=== PATIENT | female | born 1945 ===

== ENCOUNTER 2016-09-02 13:55 | Emergency (ER) | payer OTHER ==
[2016-09-02 14:08] VITALS: TEMP 97.4
[2016-09-02 14:42] LABS: BASO # 0.1 K/uL (0.0-0.2); BASO % 1.5 % (0.0-2.0); EOS # 0.2 K/uL (0.0-0.7); EOS % 2.4 % (0.0-4.0); HEMATOCRIT 41.1 % (34.0-47.0); LYMPH # 2.9 K/uL (1.0-4.3); LYMPH % 35.3 % (20.0-40.0); MEAN CELL VOLUME 88.6 fL (81.0-99.0); MEAN CORPUSCULAR HEMOGLOBIN 29.6 pg (27.0-31.0); MEAN CORPUSCULAR HGB CONC 33.4 g/dL (33.0-37.0); MEAN PLATELET VOLUME 8.6 fL (7.2-11.7); MONO # 0.5 K/uL (0.0-0.8); MONO % 5.8 % (0.0-10.0); NRBC % 0.1 % (0.0-2.0); RED CELL DISTRIBUTION WIDTH 13.4 % (11.5-14.5); WHITE BLOOD COUNT 8.2 K/uL (4.8-10.8)
[2016-09-02 14:50] LABS: CHLORIDE 100 mmol/L (98-107); INR 0.9; SODIUM 140 mmol/L (132-148)
[2016-09-02 14:51] LABS: PARTIAL THROMBOPLASTIN TIME 38 SECONDS (21-34)
[2016-09-02 14:52] LABS: AST/SGOT 38 U/L (14-36); BILIRUBIN,TOTAL 0.3 mg/dL (0.2-1.3); GFR AFRICAN-AMERICAN > 60
[2016-09-02 14:53] LABS: ALB/GLOB RATIO 1.4 (1.0-2.1); ALKALINE PHOSPHATASE 128 U/L (38-126); ALT/SGPT 60 U/L (9-52); BLOOD UREA NITROGEN 13 mg/dL (7-17); CALCIUM 9.1 mg/dl (8.6-10.4); CARBON DIOXIDE 26 mmol/L (22-30); GLUCOSE,RANDOM 117 mg/dL (65-105); TOTAL PROTEIN 7.6 g/dL (6.3-8.3)
[2016-09-02] MEDS ORDERED: Albuterol-Ipratrop 3 mg / 0.5 (3 ml) UD IH STA (15:07)
--- NOTE | 2016-09-02 15:10 | RAD ---
PROCEDURE: CHEST RADIOGRAPH, 1 VIEW HISTORY: SOB COMPARISON: None available. FINDINGS: LUNGS: Mild venous congestion. Right hilar prominence and or consolidation. Upper lobe granulomatous changes. PLEURA: As above. CARDIOVASCULAR: Cardiomegaly. OSSEOUS STRUCTURES: No significant abnormalities. VISUALIZED UPPER ABDOMEN: Normal. OTHER FINDINGS: None. IMPRESSION: Mild venous congestion. Right hilar prominence and or consolidation. Upper lobe granulomatous changes.
[2016-09-02] MEDS ORDERED: Albuterol-Ipratrop 3 mg / 0.5 (3 ml) UD ONE (15:13)
[2016-09-02] MEDS ORDERED: Iodixanol 320 MG/ML 100 ML BOTTLE IV ONE (15:30)
--- NOTE | 2016-09-02 16:48 | CT ---
PROCEDURE: CT Chest with contrast (Pulmonary Angiogram) HISTORY: Shortness of breath evaluate for pulmonary emboli. COMPARISON: None available. TECHNIQUE: Axial computed tomography images were obtained of the chest in the pulmonary arterial phase of enhancement. Coronal and sagittal reformatted images were created and reviewed. Sagittal and coronal reformatted MIPS images were obtained. Radiation dose: Total exam DLP = 472 mGy-cm. This CT exam was performed using one or more of the following dose reduction techniques: Automated exposure control, adjustment of the mA and/or kV according to patient size, and/or use of iterative reconstruction technique. FINDINGS: PULMONARY ARTERIES: Unremarkable. No pulmonary embolism. Mild streak artifact noted at the anterior aspect of the right upper lung. AORTA: No acute findings. No thoracic aortic aneurysm. Calcification and plaque within the aorta. LUNGS: Biapical pleural thickening. Right lun millimeter pulmonary nodule at the right lung apex on series 4, image 29. 3 millimeter calcified granuloma in the right upper lobe posteriorly. Left lung call 1 millimeter subpleural nodule along the lateral aspect of the left upper lobe. No pleural or pericardial effusion. PLEURAL SPACES: Unremarkable. No effusion or pneuomothorax. HEART: Unremarkable. No cardiomegaly. No significant pericardial effusion. LYMPH NODES: 6 millimeter prevascular lymph node. BONES, CHEST WALL: Degenerative changes in the spine. OTHER FINDINGS: Prominent liver with diffuse fatty infiltration. Peripheral 4 and 3 millimeter calcifications within the right hepatic lobe. At the periphery of the right hepatic lobe on series 3, image 97, there are some partially calcified lobulated lesions of uncertain clinical etiology. These measure in total up to 3.8 x 1.0 x 1.0 centimeters. Correlation with multiphasic CT or MR may be helpful if clinically indicated. More inferomedially on the coronal sequences an additional partially calcified lesion at the periphery of the right hepatic lobe measures up to 7 millimeters. Prior cholecystectomy. Spleen is preserved. Adrenal glands are preserved. Pancreas is preserved. Small hiatal hernia. IMPRESSION: No evidence of acute pulmonary embolism. Prominent liver with diffuse fatty infiltration. Peripheral 4 and 3 millimeter calcifications within the right hepatic lobe. At the periphery of the right hepatic lobe on series 3, image 97, there are some partially calcified lobulated lesions of uncertain clinical etiology. These measure in total up to 3.8 x 1.0 x 1.0 centimeters. Correlation with multiphasic CT or MR may be helpful if clinically indicated. More inferomedially on the coronal sequences an additional partially calcified lesion at the periphery of the right hepatic lobe measures up to 7 millimeters.
[2016-09-02 17:04] VITALS: BP 154/70; PULSE 79; RESP 17
--- NOTE | 2016-09-02 17:05 | C.PDOC ---
Time Seen by Provider: 09/02/16 14:14 Chief Complaint (Nursing): Shortness Of Breath History Per: Patient, Family Onset/Duration Of Symptoms: Days (about 1 month), Waxing/Waning Current Symptoms Are (Timing): Still Present Exacerbating Factor(s): Exertion (?) Severity: Moderate Additional History Per: Prior Records Past Medical History Reviewed: Historical Data, Nursing Documentation, Vital Signs Vital Signs: Last Vital Signs Temp 97.4 F L 09/02/16 14:04 Pulse 96 H 09/02/16 14:47 Resp 15 09/02/16 14:47 BP 163/81 H 09/02/16 14:47 Pulse Ox 94 L 09/02/16 14:47 - Medical History PMH: HTN Family History: States: Unknown Family Hx - Social History Hx Tobacco Use: No Hx Alcohol Use: No Hx Substance Use: No - Immunization History Hx Tetanus Toxoid Vaccination: Yes Hx Influenza Vaccination: Yes Hx Pneumococcal Vaccination: No Review Of Systems Except As Marked, All Systems Reviewed And Found Negative. Constitutional: Negative for: Fever, Weakness Cardiovascular: Negative for: Chest Pain Respiratory: Positive for: Shortness of Breath. Negative for: Hemoptysis Gastrointestinal: Negative for: Nausea, Vomiting, Abdominal Pain Musculoskeletal: Negative for: Neck Pain, Back Pain, Leg Pain Skin: Negative for: Rash Neurological: Negative for: Weakness, Numbness, Seizures, Altered Mental Status Physical Exam - Physical Exam Appears: Non-toxic, No Acute Distress Skin: Normal Color, Warm, Dry, No Rash Head: Atraumatic, Normacephalic Eye(s): bilateral: Normal Inspection, PERRL, EOMI Neck: Normal ROM, Supple Chest: Symmetrical, No Deformity Cardiovascular: Rhythm Regular Respiratory: Normal Breath Sounds, No Accessory Muscle Use Gastrointestinal/Abdominal: Soft, No Tenderness Back: No CVA Tenderness Extremity: Normal ROM, No Calf Tenderness Neurological/Psych: Oriented x3, Normal Motor, Normal Sensation ED Course And Treatment - Laboratory Results Result Diagrams: 09/02/16 14:37 09/02/16 14:37 Lab Interpretation: No Acute Changes ECG: Interpreted By Me, Viewed By Me ECG Rhythm: Sinus Rhythm, Nonspecific Changes ECG Interpretation: No Acute Changes Rate From EC O2 Sat by Pulse Oximetry: 97 (on RA) Pulse Ox Interpretation: Normal - CT Scan/US CTA of chest Other Rad Studies (CT/US): Read By Radiologist, Radiology Report Reviewed CT/US Interpretation: IMPRESSION: No evidence of acute pulmonary embolism. Prominent liver with diffuse fatty infiltration. Peripheral 4 and 3 millimeter calcifications within the right hepatic lobe. At the periphery of the right hepatic lobe on series 3, image 97, there are some partially calcified lobulated lesions of uncertain clinical etiology. These measure in total up to 3.8 x 1.0 x 1.0 centimeters. Correlation with multiphasic CT or MR may be helpful if clinically indicated. More inferomedially on the coronal sequences an additional partially calcified lesion at the periphery of the right hepatic lobe measures up to 7 millimeters. Disposition Counseled Patient/Family Regarding: Studies Performed, Diagnosis, Need For Followup - Disposition Referrals: [facility] [Outside] Disposition: HOME/ ROUTINE Disposition Time: 17:07 Condition: STABLE Additional Instructions: Lose weight. Follow up with your doctor in the clinic within 1-2 weeks for further evaluation and treatment. Return to the ER if you develop chest pain, cough, fever, worsening of symptoms or if you have any other concerns. Instructions: Dyspnea (ED), Pulmonary Nodules (ED), Non-Alcoholic Fatty Liver Disease (ED) Print Language: NAURUAN - Clinical Impression Clinical Impression: Dyspnea, Pulmonary nodules, Fatty liver
[2016-09-02 17:08] VITALS: O2SAT 97
--- NOTE | 2016-09-04 11:41 | CARD ---
APPROVED REPORT EKG Measurement Heart [id number] <Conclusion> Normal sinus rhythm Normal ECG
== END 2016-09-02 17:19 | disposition home or self-care (01) ==
LOC: C.ER 13:55
DX: R06.00 Dyspnea, unspecified (principal); R91.1 Solitary pulmonary nodule; K76.0 Fatty (change of) liver, not elsewhere classified
CPT/HCPCS: 71010; 71275; 80053; 83880; 84484; 85025; 85378; 85610; 85730; 93005; 99285; Q9967

== ENCOUNTER 2018-09-14 16:19 | Emergency (ER) | payer OTHER ==
[2018-09-14 16:19] VITALS: BMI 36.1
[2018-09-14 16:28] VITALS: RESP 18
--- NOTE | 2018-09-14 16:40 | C.PDOC ---
History Of Present Illness 73 year old female presents to the emergency department with complaints of a left-sided parietal headache. Patient qualifies the headache as intermittent and dull. She denies change in vision or vomiting. Patient states that when her headache comes, it makes her legs feel weak. Time Seen by Provider: 09/14/18 16:27 Chief Complaint (Nursing): Headache History Per: Patient History/Exam Limitations: no limitations Onset/Duration Of Symptoms: Intermittent Episodes Current Symptoms Are (Timing): Still Present Quality: Dull, Aching Preceeding Symptoms: denies: Visual Disturbances Associated Symptoms: Extremity Weakness. denies: Photophobia, Blurred Vision, Vomiting Past Medical History Reviewed: Historical Data, Nursing Documentation, Vital Signs Vital Signs: Last Vital Signs Temp 98.2 F 09/14/18 16:22 Pulse 90 09/14/18 16:22 Resp 18 09/14/18 16:22 BP 167/88 H 09/14/18 16:22 Pulse Ox 97 09/14/18 16:22 - Medical History PMH: HTN Denies: Chronic Kidney Disease Surgical History: No Surg Hx Family History: States: No Known Family Hx - Social History Hx Tobacco Use: No Hx Alcohol Use: No Hx Substance Use: No - Immunization History Hx Tetanus Toxoid Vaccination: Yes Hx Influenza Vaccination: Yes Hx Pneumococcal Vaccination: No Review Of Systems Except As Marked, All Systems Reviewed And Found Negative. Eyes: Negative for: Vision Change Gastrointestinal: Negative for: Vomiting Neurological: Positive for: Weakness, Headache Physical Exam - Physical Exam Appears: Non-toxic, No Acute Distress Skin: Normal Color, Warm, Dry Head: Atraumatic, Normacephalic Eye(s): bilateral: Normal Inspection, PERRL, EOMI Nose: Normal Oral Mucosa: Moist Neck: Normal, Supple Chest: Symmetrical, No Tenderness Cardiovascular: Rhythm Regular, No Murmur Respiratory: Normal Breath Sounds, No Rales, No Rhonchi, No Wheezing Gastrointestinal/Abdominal: Soft, No Tenderness, No Guarding, No Rebound Extremity: Normal ROM Neurological/Psych: Oriented x3, Normal Speech, Normal Cognition ED Course And Treatment - Laboratory Results Result Diagrams: 09/14/18 17:10 09/14/18 17:10 O2 Sat by Pulse Oximetry: 97 (RA) Pulse Ox Interpretation: Normal Medical Decision Making Medical Decision Making: Plan: CT Head CMP CBC Reglan 10mg IVP Toradol 15mg IVP Urine Culture Urinalysis After treatment patient reports her headache has resolved, patient is clear for d/c. Disposition Counseled Patient/Family Regarding: Studies Performed, Diagnosis, Need For Followup, Rx Given - Disposition Referrals: [facility] [Outside] Disposition Time: 18:15 Condition: STABLE Prescriptions: Acetaminophen/Butalbital/Caf [Fioricet] 1 tab PO TID PRN #10 tab PRN Reason: Headache Instructions: Headache, Adult (DC) Forms: [employer] ([employer]wana) Print Language: YI - POA Present On Arrival: None - Clinical Impression Clinical Impression: Headache - Scribe Statement The provider has reviewed the documentation as recorded by the Scribe (Clive Adan) Provider Attestation: All medical record entries made by the Scribe were at my direction and personally dictated by me. I have reviewed the chart and agree that the record accurately reflects my personal performance of the history, physical exam, medical decision making, and the department course for this patient. I have also personally directed, reviewed, and agree with the discharge instructions and disposition.
[2018-09-14 17:13] LABS: BASO % 0.6 % (0.0-2.0); EOS # 0.2 K/uL (0.0-0.7); EOS % 2.5 % (0.0-4.0); HEMOGLOBIN 14.2 g/dL (11.0-16.0); LYMPH # 2.3 K/uL (1.0-4.3); LYMPH % 32.1 % (20.0-40.0); MEAN CELL VOLUME 88.3 fL (81.0-99.0); MEAN CORPUSCULAR HEMOGLOBIN 30.3 pg (27.0-31.0); MEAN CORPUSCULAR HGB CONC 34.3 g/dL (33.0-37.0); MEAN PLATELET VOLUME 8.7 fL (7.2-11.7); MONO # 0.6 K/uL (0.0-0.8); MONO % 8.7 % (0.0-10.0); NEUT % 56.1 % (50.0-75.0); RBC 4.68 Mil/uL (3.80-5.20); WHITE BLOOD COUNT 7.1 K/uL (4.8-10.8)
[2018-09-14 17:25] LABS: ALB/GLOB RATIO 1.6 (1.0-2.1); ALBUMIN 4.5 g/dL (3.5-5.0); ALT/SGPT 26 U/L (9-52); AST/SGOT 31 U/L (14-36); BLOOD UREA NITROGEN 15 mg/dL (7-17); CALCIUM 9.7 mg/dl (8.6-10.4); GFR NON-AFRICAN AMERICAN > 60
[2018-09-14 17:36] LABS: SQUAMOUS EPITHIAL < 1 /hpf (0-5); URINE BILIRUBIN NEGATIVE (NEGATIVE); URINE BLOOD 2+ (NEGATIVE); URINE CLARITY Clear (Clear); URINE COLOR Straw (YELLOW); URINE GLUCOSE (UA) NORMAL (Normal); URINE LEUKOCYTE ESTERASE NEG Leu/uL (Negative); URINE PROTEIN NEGATIVE (NEGATIVE); URINE UROBILINOGEN NORMAL mg/dL (0.2-1.0)
[2018-09-14 18:14] VITALS: BP 128/65; PULSE 78; TEMP 98.1
[2018-09-14 18:17] VITALS: O2SAT 97
--- NOTE | 2018-09-14 21:11 | CT ---
Date of service: 09/14/2018 PROCEDURE: CT HEAD WITHOUT CONTRAST. HISTORY: headache COMPARISON: 08/19/2015 TECHNIQUE: Axial computed tomography images were obtained through the head/brain without intravenous contrast. Radiation dose: Total exam DLP = 1043.43 mGy-cm. This CT exam was performed using one or more of the following dose reduction techniques: Automated exposure control, adjustment of the mA and/or kV according to patient size, and/or use of iterative reconstruction technique. FINDINGS: HEMORRHAGE: No intracranial hemorrhage. BRAIN: Fontanez-white matter differentiation is preserved. There is redemonstration of the left middle cranial fossa arachnoid cyst. There is no mass effect or abnormal extra-axial fluid collection. There is no territorial infarction. The midline sagittal structures are normal. VENTRICLES: There is mild age-related global parenchymal volume loss with frontal predominance and proportionate enlargement of the ventricles and cortical sulci. CALVARIUM: There is no calvarial fracture or extracranial soft tissue swelling. PARANASAL SINUSES: Predominantly clear. MASTOID AIR CELLS: Predominantly clear. There is partial loss of pneumatization of the left mastoid air cells. OTHER FINDINGS: None. IMPRESSION: No acute intracranial abnormality. No significant interval change. A preliminary report was provided by [employer].
== END 2018-09-14 18:32 | disposition home or self-care (01) ==
LOC: C.ER 16:19
DX: R51 Headache (principal)
CPT/HCPCS: 70450; 80053; 81001; 85025; 87086; 96374; 96375; 99285; J1885; J2765